=== PATIENT | male | born 1980 | race African-American/Black ===

== ENCOUNTER 2016-12-22 09:28 | Emergency (ER) | payer SELFPAY ==
[~2016-12-22] VITALS: Ht 188 cm; Wt 100.0 kg
[~2016-12-22 09:28] MED LIST: IBUP800T23 PO
[2016-12-22 09:29] VITALS: BP 123/60; PULSE 68; RESP 20; TEMP 97.3; O2SAT 99
--- NOTE | 2016-12-22 09:51 | PD ---
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 Pain is to the lateral aspect of the knee. Reports occasional swelling of the knee. Reports being ambulatory. Denies paresthesias, loss of sensation , decreased range of motion, decreased strength to the affected extremity. Has been taking BC powder for symptom management. Symptoms are mild in severity. Allergies to acetaminophen, hydrocodone, penicillin. Has no other medical complaints. No other modifying factors or associated signs and symptoms. History Social History Alcohol Use: Yes (WEEKENDS) Tobacco Use: No Allergies-Medications (Allergen,Severity, Reaction): Coded Allergies: acetaminophen (Unverified Allergy, Severe, Nausea/Vomiting, 11/18/16) hydrocodone (Unverified Allergy, Severe, Nausea/Vomiting, 11/18/16) penicillin G (Unverified Allergy, Severe, RASH/HIVES, 11/18/16) QUESTIONABLE Reported Meds & Prescriptions Reported Meds & Active Scripts Active Ibuprofen 800 Mg Tab 800 Mg PO TID 10 Days Review of Systems Except as stated in HPI: all other systems reviewed are Neg Physical Exam Narrative GENERAL: Well-nourished, well-developed black male patient, in no acute distress ; afebrile, nontoxic-appearing SKIN: Warm and dry. HEAD: Atraumatic. Normocephalic. EYES: Pupils equal and round. No scleral icterus. No injection or drainage. ENT: Mucosa pink and moist. Airway patent. NECK: Trachea midline. CARDIOVASCULAR: Regular rate. RESPIRATORY: No accessory muscle use. GASTROINTESTINAL: Round. MUSCULOSKELETAL: Left knee nonedematous, nonerythematous, and without ecchymosis ; full range of motion and flexion to 90; point tenderness to the lateral aspect; joint stable with negative drawer test; no obvious deformity. Left Lower extremity is supple and non-tense with 2+ pedal pulse and sensory intact and without erythema or edema. Ambulatory in the room with a normal gait. NEUROLOGICAL: Awake and alert. Oriented 3. No obvious cranial nerve deficits. Motor grossly within normal limits. Normal speech. PSYCHIATRIC: Appropriate mood and affect; insight and judgment normal. Data Data Last Documented VS Vital Signs Date Time Temp Pulse Resp B/P (MAP) Pulse Ox O2 Delivery O2 Flow Rate FiO2 12/22/16 09:29 97.3 68 20 123/60 (81) 99 Room Air MDM Medical Screen Exam Complete: Yes Emergency Medical Condition: No Differential Diagnosis Knee strain, meniscal tear, ligament tear; less likely fracture or dislocation Narrative Course 36-year-old male with left knee injury from one month ago while at work. I do not suspect fracture dislocation of the imaging is not necessary at this time. Patient is hematuria in the room with a normal gait. Patient provided information sheet for follow-up outpatient. Vital signs are stable and the patient is stable for outpatient follow-up and treatment. The pateint has no urgent or emergent medical complaints. There is no emergent or urgent medical need at this time. I instructed the patient to follow up with [facility] primary care provider. A medical screening exam was performed: At the time of evaluation the presenting medical condition was determined not to be of an emergent nature. The patient was given the option of receiving additional care, but declined. Patient was given options for additional community resources from which to obtain care. The Patient Has Been advised to seek medical attention for their presenting complaint. The patient has been advised to return to the ER at any time if an emergent condition develops. Primary Impression: Encounter for medical screening examination Condition: Stable Jillian Mendenhall Dec 22, 2016 09:51
== END 2016-12-22 10:14 | disposition left against medical advice (07) ==
LOC: NEPK 09:28
DX: M25.562 Pain in left knee (principal)
CPT/HCPCS: 99281

== ENCOUNTER 2017-05-25 04:28 | Emergency (ER) | payer OTHER ==
[~2017-05-25] VITALS: Ht 188 cm; Wt 95.0 kg
[2017-05-25 04:31] VITALS: BP 120/75; PULSE 88; RESP 16; TEMP 97.6; O2SAT 99
[2017-05-25] MEDS ORDERED: ALBU6.7H INH (04:47)
[2017-05-25] MEDS ORDERED: PRED-503 PO (04:47)
[2017-05-25] MEDS ORDERED: ZITHTAB PO (04:47)
--- NOTE | 2017-05-25 05:07 | RADRPT ---
EXAM DATE/TIME: 05/25/2017 05:00 [place] COMPARISON: CHEST SINGLE AP, July 12, 2014, 8:56. INDICATIONS : Cough and congestion x 1 week. MEDICAL HISTORY : None. SURGICAL HISTORY : None. ENCOUNTER: Initial ACUITY: 1 week PAIN SCORE: 6/10 LOCATION: Bilateral chest FINDINGS: A single view of the chest demonstrates the lungs to be symmetrically aerated without evidence of mas s, infiltrate or effusion. The cardiomediastinal contours are unremarkable. Osseous structures are intact with mild scoliosis. CONCLUSION: No acute disease. There is no evidence of pneumonia. Fito Cho MD on May 25, 2017 at 5:05 Board Certified Radiologist. This report was verified electronically.
--- NOTE | 2017-05-25 05:12 | PD ---
HPI Chief Complaint: Cold / Flu Symptoms Time Seen by Provider: 04:43 Travel History International Travel<30 days: No Contact w/Intl Traveler<30days: No Traveled to known affect area: No History of Present Illness HPI 37-year-old black male presents emergency department with a week history of cough, congestion, sore throat and ear pain. He states he has now developed some discomfort in his chest worse with taking a deep breath or rotating. He denies any nausea vomiting. No abdominal pain or diarrhea. No dysuria or frequency. Symptoms are moderate. PFSH Past Medical History Medical History: Denies Significant Hx Diminished Hearing: No Integumentary: Yes (ABCESS RIGHT GROIN) Migraines: Yes Tetanus Vaccination: < 5 Years Past Surgical History Surgical History: No Previous Surgery Social History Alcohol Use: Yes (WEEKENDS) Tobacco Use: No Substance Use: Yes (DAILY/MARIJUANA) Allergies-Medications (Allergen,Severity, Reaction): Coded Allergies: acetaminophen (Unverified Allergy, Severe, Nausea/Vomiting, 05/25/17) hydrocodone (Unverified Allergy, Severe, Nausea/Vomiting, 05/25/17) penicillin G (Unverified Allergy, Severe, RASH/HIVES, 05/25/17) QUESTIONABLE Reported Meds & Prescriptions Reported Meds & Active Scripts Active Deltasone (Prednisone) 20 Mg Tab 20 Mg PO BID 5 Days Proventil Hfa 6.7 GM Inh (Albuterol Sulfate) 90 Mcg/Act Aer 2 Puff INH Q4-6H PRN Zithromax Z-Scot (Azithromycin) 250 Mg Dspk 250 Mg PO DIRECTED 500 MG (2 tabs) day 1, then 1 tab days 2-5. Review of Systems Except as stated in HPI: all other systems reviewed are Neg Physical Exam Narrative GENERAL: Well-developed, well-nourished in no apparent distress. Nontoxic appearing. HEAD: Normocephalic, atraumatic. EYES: Pupils equal round and reactive. Extraocular motions intact. No scleral icterus. No injection or drainage. ENT: Nose clear. Throat without erythema, tonsillar hypertrophy or exudate. Uvula midline. Airway patent. NECK: Trachea midline. Supple, nontender, moves head freely. No central bony tenderness or spasm. CARDIOVASCULAR: Regular rate and rhythm without murmurs, gallops, or rubs. RESPIRATORY: Few scattered rhonchi. No wheezes or rales. GASTROINTESTINAL: Abdomen soft, non-tender, nondistended. No hepato-splenomegaly , or palpable masses. No guarding. EXTREMITIES: No clubbing, cyanosis, or edema. No joint tenderness. BACK: Nontender without deformity. No flank tenderness. NEUROLOGICAL: Awake, alert and oriented x 3 .Cranial nerves grossly intact. Motor and sensory grossly within normal limits. Normal speech. Data Data Last Documented VS Vital Signs Date Time Temp Pulse Resp B/P (MAP) Pulse Ox O2 Delivery O2 Flow Rate FiO2 05/25/17 04:31 97.6 88 16 120/75 (90) 99 Room Air Orders Orders Chest, Single Ap (05/25/17 04:46) Ed Discharge Order (05/25/17 05:08) MDM Medical Decision Making Medical Screen Exam Complete: Yes Emergency Medical Condition: Yes Medical Record Reviewed: Yes Interpretation(s) Chest x-ray: No acute pulmonary process Differential Diagnosis MDM: High Differential diagnoses: Pneumonia, bronchitis, URI, asthma, RAD, legionnaire's disease, SARS, ARDS, influenza, bronchiolitis, RSV,PE,CHF Narrative Course Patient's x-ray is negative. The patient will be treated for bronchitis. Diagnosis Primary Impression: Bronchitis Additional Impression: reactive airway disease Patient Instructions: General Instructions Departure Forms: Tests/Procedures, Work Release Special Instructions: No work 2 days. Additional Instructions: Rest. Increase fluids. Tylenol and Advil. Robitussin-DM. Zithromax, prednisone, and albuterol. Followup with your Dr. in one week. Return to the ER for any problems. Med/Other Pt SpecificInfo: Prescription(s) given Scripts Prednisone (Deltasone) 20 Mg Tab 20 MG PO BID for 5 Days, #10 TAB 0 Refills Prov: Margot Fabian MD 05/25/17 Albuterol 6.7 GM Inh (Proventil Hfa 6.7 GM Inh) 90 Mcg/Act Aer 2 PUFF INH Q4-6H Y for SHORTNESS OF BREATH, #1 INHALER 0 Refills Prov: Margot Fabian MD 05/25/17 Azithromycin (Zithromax Z-Scot) 250 Mg Dspk 250 MG PO DIRECTED for Infection, #1 DSPK 0 Refills 500 MG (2 tabs) day 1, then 1 tab days 2-5. Prov: Margot Fabian MD 05/25/17 Disposition: 01 DISCHARGE HOME Condition: Stable Chris Cameron May 25, 2017 05:12
== END 2017-05-25 05:28 | disposition home or self-care (01) ==
LOC: NEPD 04:28
DX: J40 Bronchitis, not specified as acute or chronic (principal); Z88.0 Allergy status to penicillin; Z88.8 Allergy status to other drugs, medicaments and biological substances
CPT/HCPCS: 71045; 99283

== ENCOUNTER 2017-09-16 03:05 | Emergency (ER) | payer OTHER ==
[~2017-09-16] VITALS: Ht 188 cm; Wt 100.0 kg
[~2017-09-16 03:05] MED LIST changes: +ALBU6.7H INH; -IBUP800T23 PO; +PRED-503 PO; +ZITHTAB PO
[2017-09-16 03:07] VITALS: BP 124/75; PULSE 70; RESP 18; TEMP 98.1; O2SAT 99
[2017-09-16] MEDS ORDERED: DICL75TA PO (03:57)
[2017-09-16] MEDS ORDERED: ROBA750T PO (03:57)
[2017-09-16] MEDS ORDERED: KETOROLAC TROMETHAMINE 60 MG/2 ML (IM) VIAL IM ONE (04:00)
[2017-09-16] MEDS ORDERED: ORPHENADRINE INJ 60 MG/2 ML AMP IM ONE (04:00)
--- NOTE | 2017-09-16 04:02 | PD ---
HPI Chief Complaint: Back/ Neck Pain or Injury Time Seen by Provider: 03:49 Travel History International Travel<30 days: No Contact w/Intl Traveler<30days: No Traveled to known affect area: No History of Present Illness HPI 37-year-old black male presents emergency department with complaints of left lower back pain after lifting a log in his yard and twisting this afternoon sometime after 11 AM. Patient has a history of lower back pain in the past. He states the pain is moderate but can be severe. Worse with bending and movement. He denies any numbness, tingling or focal weakness. No acute bowel or bladder changes. No recent illness. PFSH Past Medical History Narrative Medical Chronic back pain Diminished Hearing: No Integumentary: Yes (ABCESS RIGHT GROIN) Migraines: Yes Tetanus Vaccination: < 5 Years Influenza Vaccination: No Past Surgical History Surgical History: No Previous Surgery Social History Alcohol Use: Yes (WEEKENDS) Tobacco Use: Yes Substance Use: Yes (DAILY/MARIJUANA) Allergies-Medications (Allergen,Severity, Reaction): Coded Allergies: acetaminophen (Unverified Allergy, Severe, Nausea/Vomiting, 09/16/17) hydrocodone (Unverified Allergy, Severe, Nausea/Vomiting, 09/16/17) penicillin G (Unverified Allergy, Severe, RASH/HIVES, 09/16/17) QUESTIONABLE Reported Meds & Prescriptions Reported Meds & Active Scripts Active Robaxin (Methocarbamol) 750 Mg Tab 1,500 Mg PO TID [address] (Diclofenac Sodium) 75 Mg Tabdr 75 Mg PO BID Review of Systems General / Constitutional: No: Fever Eyes: No: Visual changes HENT: No: Headaches Cardiovascular: No: Chest Pain or Discomfort Respiratory: No: Shortness of Breath Gastrointestinal: No: Abdominal Pain Genitourinary: No: Dysuria Musculoskeletal: Positive: Arthralgias, Limited ROM, Cramping, Pain Skin: No Rash Neurologic: No: Weakness Psychiatric: No: Depression Endocrine: No: Polydipsia Hematologic/Lymphatic: No: Easy Bruising Physical Exam Narrative GENERAL: Well-developed, well-nourished in no apparent distress. Nontoxic appearing. HEAD: Normocephalic, atraumatic. EYES: Pupils equal round and reactive. Extraocular motions intact. No scleral icterus. No injection or drainage. ENT: Nose clear. Throat without erythema, tonsillar hypertrophy or exudate. Uvula midline. Airway patent. NECK: Trachea midline. Supple, nontender, moves head freely. No central bony tenderness or spasm. CARDIOVASCULAR: Regular rate and rhythm without murmurs, gallops, or rubs. RESPIRATORY: Clear to auscultation. Breath sounds equal bilaterally. No wheezes , rales, or rhonchi. GASTROINTESTINAL: Abdomen soft, non-tender, nondistended. No hepato-splenomegaly , or palpable masses. No guarding. EXTREMITIES: No clubbing, cyanosis, or edema. No joint tenderness. BACK: Tender left paralumbar muscles with spasm. Without deformity. No flank tenderness. No central bony tenderness. No pain in the cervical, dorsal spine. No saddle anesthesia.Deep tendon reflexes are 3+ bilaterally in the knee jerks. NEUROLOGICAL: Awake, alert and oriented x 3 .Cranial nerves grossly intact. Motor and sensory grossly within normal limits. Normal speech. Data Data Last Documented VS Vital Signs Date Time Temp Pulse Resp B/P (MAP) Pulse Ox O2 Delivery O2 Flow Rate FiO2 09/16/17 03:07 98.1 70 18 124/75 (91) 99 Orders Orders Ketorolac Inj (Toradol Inj) (09/16/17 04:00) Orphenadrine Inj (Norflex Inj) (09/16/17 04:00) [facility] Medical Decision Making Medical Screen Exam Complete: Yes Emergency Medical Condition: Yes Medical Record Reviewed: Yes Differential Diagnosis MDM: High Differential diagnoses: Fracture, sprain, strain, HNP, nerve or vascular injury , epidural abscess, pilonidal cyst Narrative Course Patient is given Toradol 60 and Norflex 60 mg IM. acute back strain with spasm Diagnosis Primary Impression: acute back strain with spasm Patient Instructions: General Instructions Departure Forms: Tests/Procedures, Work Release Special Instructions: No work 3 days. Additional Instructions: Rest. Ice for the next 3 days followed by heat . Chenteaxin and Voltaren. Follow-up with a primary care doctor in one week. Return to the ER for emergencies. Med/Other Pt SpecificInfo: Prescription(s) given Scripts Methocarbamol (Robaxin) 750 Mg Tab 1500 MG PO TID for Muscle Spasm for 7 Days, TAB 0 Refills Prov: Jayme Hebert MD 09/16/[address] (Diclofenac Sodium DR) 75 Mg Tabdr 75 MG PO BID, #30 TAB 0 Refills Prov: Jayme Hebert MD 09/16/17 Disposition: 01 DISCHARGE HOME Condition: Stable Chris Cameron Sep 16, 2017 04:01
[2017-09-17] MEDS ORDERED: MEDR4PAK PO (09:38)
[2017-09-17] MEDS ORDERED: IBUP1TAB7 PO (09:38)
== END 2017-09-16 04:13 | disposition home or self-care (01) ==
LOC: NEPD 03:05
DX: S39.012A Strain of muscle, fascia and tendon of lower back, initial encounter (principal); M62.830 Muscle spasm of back; X50.0XXA Overexertion from strenuous movement or load, initial encounter; Y92.096 Garden or yard of other non-institutional residence as the place of occurrence of the external cause; G89.29 Other chronic pain; Z72.0 Tobacco use; Z88.0 Allergy status to penicillin; Z88.5 Allergy status to narcotic agent
CPT/HCPCS: 96372; 99283; J1885; J2360

== ENCOUNTER 2017-09-17 08:46 | Emergency (ER) | payer OTHER ==
[~2017-09-17 08:46] MED LIST changes: +DICL75TA PO; +ROBA750T PO
[2017-09-17 09:14] VITALS: BP 134/84; PULSE 68; RESP 17; TEMP 97.5; O2SAT 99
[2017-09-17] MEDS ORDERED: IBUP1TAB7 PO (09:38)
[2017-09-17] MEDS ORDERED: MEDR4PAK PO (09:38)
--- NOTE | 2017-09-17 09:38 | PD ---
HPI Chief Complaint: Pain: Acute or Chronic Time Seen by Provider: 09:20 Travel History International Travel<30 days: No Contact w/Intl Traveler<30days: No Traveled to known affect area: No History of Present Illness HPI 37-year-old male presents to the emergency department with complaint of left buttocks pain that radiates to the back of his leg since Thursday. He said he was seen here Thursday morning and was given Robaxin and diclofenac which he has been taking with no relief of symptoms. He said his pain worsened this morning when he was walking. Denies injury. Denies encopresis, incontinence, saddle anesthesias. Denies IV drug use or cancer. Denies fever, vomiting, abdominal pain, dysuria, change in stool. Says he has feeling of numbness and tingling in his left thigh at times, but not now. Otherwise denies paresthesias, loss of sensation, decreased range of motion, decreased strength to all extremities. Has tried Robaxin and diclofenac with no relief of symptoms. Has also tried heating pad. rates pain 10/10. Describes it as a stabbing sensation. Worse with ambulation and movement. Better with heating pad and when he elevates his left leg in a flexed position. Denies significant past medical history. No primary care provider. Allergies to penicillin, hydrocodone. Has no other medical complaints. No other modifying factors or associated signs and symptoms. PFSH Past Medical History Diminished Hearing: No Integumentary: Yes (ABCESS RIGHT GROIN) Migraines: Yes Social History Alcohol Use: Yes (WEEKENDS) Tobacco Use: Yes Substance Use: Yes (MARIJUANA) Allergies-Medications (Allergen,Severity, Reaction): Coded Allergies: acetaminophen (Unverified Allergy, Severe, Nausea/Vomiting, 09/16/17) hydrocodone (Unverified Allergy, Severe, Nausea/Vomiting, 09/16/17) penicillin G (Unverified Allergy, Severe, RASH/HIVES, 09/16/17) QUESTIONABLE Reported Meds & Prescriptions Reported Meds & Active Scripts Active Ibuprofen 800 Mg Tab 800 Mg PO Q6HR PRN Medrol Dosepak (Methylprednisolone) 4 Mg Dspk 4 Mg PO DIRECTED Per Pharmacist direction Robaxin (Methocarbamol) 750 Mg Tab 1,500 Mg PO TID [address] (Diclofenac Sodium) 75 Mg Tabdr 75 Mg PO BID Review of Systems Except as stated in HPI: all other systems reviewed are Neg Physical Exam Narrative GENERAL: Well-nourished, well-developed black male patient, in no acute distress ; afebrile, nontoxic-appearing SKIN: Warm and dry. HEAD: Atraumatic. Normocephalic. EYES: Pupils equal and round. No scleral icterus. No injection or drainage. ENT: Mucosa pink and moist. Airway patent. NECK: Trachea midline. CARDIOVASCULAR: Regular rate. RESPIRATORY: No accessory muscle use. GASTROINTESTINAL: Flat. MUSCULOSKELETAL: Bilateral lower extremities supple and non-tense with 2+ pedal pulses and sensory intact; with full range of motion and 5/5 strength. 2 + DTRs bilaterally. Active dorsiflexion and extension of bilateral feet. Left straight leg raise is positive for low back pain. Ambulatory in room with a limp to the left lower extremity. Sitting up in bed at 90. No obvious deformities. No clubbing. No cyanosis. No edema. BACK: No midline point tenderness on palpation of the lumbar spine. Tenderness on palpation of left lumbar iliosacral area. No obvious deformities. NEUROLOGICAL: Awake and alert. Oriented 3. No obvious cranial nerve deficits. Motor grossly within normal limits. Normal speech. Moves all extremities. 5/5 strength to all extremities. Sensory intact. PSYCHIATRIC: Appropriate mood and affect; insight and judgment normal. Data Data Last Documented VS Vital Signs Date Time Temp Pulse Resp B/P (MAP) Pulse Ox O2 Delivery O2 Flow Rate FiO2 09/17/17 09:14 97.5 68 17 134/84 (101) 99 Orders Orders Ed Discharge Order (09/17/17 09:38) [facility] Medical Decision Making Medical Screen Exam Complete: Yes Emergency Medical Condition: Yes Medical Record Reviewed: Yes Differential Diagnosis Acute low back pain, sciatica, lumbar radiculopathy Narrative Course 37-year-old male with left-sided low back pain with sciatica. He was seen here on Thursday morning he was given Robaxin and diclofenac with no relief. His pain worsened this morning running in relation. No injury. Denies encopresis, incontinence, saddle anesthesias. Denies IV drug use or cancer. Patient is afebrile and nontoxic-appearing. Denies fever, vomiting. No change in urine or stool. Neuro exam is unremarkable. Patient has no midline tenderness on palpation of the lumbar spine. Patient ambulatory in the room with a guarded gait and limp to the left lower extremity. After the patient pain medication muscle relaxer and he declined. Medrol Dosepak and ibuprofen prescribed for home. Patient provided [facility] information for follow-up. Work release provided. Instructed patient to follow up with primary care provider. Patient verbalizes understanding and agreement with treatment plan. Patient is medically cleared and stable for discharge. Discussed reasons to return to the emergency department. Patient agrees with treatment plan. The patients vital signs are stable and the patient is stable for outpatient follow-up and treatment. Patient discharged home, stable and in no acute distress. Diagnosis Primary Impression: Left-sided low back pain with sciatica Qualified Codes: M54.42 - Lumbago with sciatica, left side Referrals: [facility] Primary Care Physician Patient Instructions: Acute Low Back Pain (ED), General Instructions, Sciatica (ED) Departure Forms: Tests/Procedures, Work Release Enter return to work date: Sep 21, 2017 Additional Instructions: Tylenol or ibuprofen as directed and as needed for pain Robaxin as prescribed and as needed for muscle spasms Medrol Dosepak as prescribed Heating pad and/or ice to affected area to reduce pain Avoid aggravating activities; increase activity as tolerated Follow-up with primary care provider Return to emergency department immediately with worsening of symptoms Med/Other Pt SpecificInfo: Prescription(s) given Scripts Ibuprofen (Ibuprofen) 800 Mg Tab 800 MG PO Q6HR Y for PAIN, #20 TAB 0 Refills Prov: Jillian Mendenhall 09/17/17 Methylprednisolone Dosepak (Medrol Dosepak) 4 Mg Dspk 4 MG PO DIRECTED, #1 DSPK 0 Refills Per Pharmacist direction Prov: Jillian Mendenhall 09/17/17 Disposition: 01 DISCHARGE HOME Condition: Stable Jillian Mendenhall Sep 17, 2017 09:38
== END 2017-09-17 09:50 | disposition home or self-care (01) ==
LOC: NEPK 08:46
DX: M54.42 Lumbago with sciatica, left side (principal); Z72.0 Tobacco use; Z88.5 Allergy status to narcotic agent
CPT/HCPCS: 99283